=== PATIENT | female | born 1945 | race Caucasian/White ===

== ENCOUNTER 2019-02-02 07:09 | Day surgery (SDC) | payer MEDICARE, OTHER ==
[~2019-02-02] VITALS: Ht 147.3 cm; Wt 86.0 kg
[2019-02-02] VITALS (17 sets, daily range): BP systolic 105–145; BP diastolic 48–91; PULSE 60–73; RESP 12–25; Ht 147.3 cm; Wt 86.0 kg
[~2019-02-02 07:09] MED LIST: DIAZEPAM 5 MG TAB PO ONE; DIPHENHYDRAMINE 50 MG CAP PO ONE; FAMOTIDINE 20 MG TAB PO ONE; SOD CHLORIDE 0.45% 1,000 ML IV SCH
[2019-02-02] MEDS ORDERED: FAMOTIDINE 20 MG TAB PO SCH (08:30)
[2019-02-02] MEDS ORDERED: DIAZEPAM 5 MG TAB PO SCH (08:30)
[2019-02-02] MEDS ORDERED: DIPHENHYDRAMINE 50 MG CAP PO SCH (08:30)
[2019-02-02] MEDS ORDERED: LIDOCAINE 1% (MDV) 20 ML INJ ONE (08:31)
[2019-02-02] MEDS ORDERED: HEPARIN 1000 UNITS/ML 10 ML INJ ONE (08:31)
[2019-02-02] MEDS ORDERED: FENTAnyl 50 MCG/ML VIAL ONE (08:31)
[2019-02-02] MEDS ORDERED: MIDAZOLAM 1 MG/ML 2 ML INJ ONE (08:32)
[2019-02-02] MEDS ORDERED: NITROGLYCERIN (IC) 100 MCG/ML INJ ONE (08:32)
[2019-02-02] MEDS ORDERED: VERAPAMIL 5 MG INJ ONE (08:32)
[2019-02-02] MEDS ORDERED: OMEP20CA16 PO (08:38)
[2019-02-02] MEDS ORDERED: AMLO5TAB4 PO (08:39)
[2019-02-02] MEDS ORDERED: SOD CHLORIDE 0.9% 1,000 ML IV SCH (09:59)
[2019-02-02] MEDS ORDERED: ONDANSETRON 4 MG INJ IV PRN (10:00)
[2019-02-02] MEDS ORDERED: ACETAMINOPHEN 325 MG TAB PO PRN (10:00)
[2019-02-02] MEDS ORDERED: morphine 2 MG INJ IV PRN (10:00)
[2019-02-02] MEDS ORDERED: AL HYDROX/MG HYDROX/SIMETH 30 ML CUP PO PRN (10:00)
--- NOTE | 2019-02-02 10:07 | SIPON ---
Date/Time of Note Date/Time of Note DATE: 02/02/19 TIME: 10:04 Operative Report Preoperative Diagnosis 1.chest pain 2.abnl mpi Postoperative Diagnosis 1.non-obstructive cad Operation/Procedure Performed 1.[facility] Surgeon see signature line administrative assistant receptionist 1.Ronal Anesthesia: moderate sedation Estimated blood loss: minimal Transfusion Required none Specimen none Grafts/Implants none Complications none NUNU PEACE February 02, 2019 10:07
--- NOTE | 2019-02-02 15:31 | CARRPT ---
DATE OF PROCEDURE: 02/02/2019 TYPE OF PROCEDURES: 1. Left heart catheterization. 2. Coronary angiography. 3. Measurement of left ventricular end-diastolic pressure. 4. Moderate constipation. ATTENDING PHYSICIAN: Nunu Peraza MD REFERRING PHYSICIAN: Lovely Blanchard MD INDICATION: Chest pain refractory to medical therapy. TYPE OF ANESTHESIA: Conscious and local. BRIEF HISTORY: Ms. Mathew is a 73-year-old female with a history of hypertension and dyslipidemia who presented with complaints of substernal chest pain and cardiac stress test showing positive isch emia. Given these findings, the patient was referred for and presents today in order to undergo left heart catheterization to assess for possibility of significant obstructive coronary artery lending t o symptoms of chest pain and positive stress test findings. DESCRIPTION OF PROCEDURE: After informed consent was obtained, the patient was brought to the [facility] cardiac catheterization lab where her right radial area was prepped and draped in a sterile fashion. A 2% lidocaine was infiltrated into right radial area in order to achieve lukas quate anesthesia. Using the modified Seldinger technique, the radial artery was cannulated and a 6-F rench arterial sheath was placed. A 6-[place] JL3 catheter was used to cannulate the left main serrano ry artery ostium. With contrast injection, multiple views of the left coronary arterial system were obtained. JL3 was removed over a guidewire and JR4 was used to cannulate the right coronary arterial ostium. With contrast injection, multiple views of the right coronary system were obtained. JR4 wa s more guidewire and a 6-[place] pigtail was passed down the ascending aorta and placed in LV and ozzie ured LVEDP and pullback across the aortic valve to assess for significant gradient, which there was n ot. Subsequently, this completed the procedure. The patient's catheters were removed. The patient' s sheath was removed. TR band was applied. There were no noted complications. FINDINGS: Coronary angiography: Left main is 4 mm, no significant focal stenosis. Circumflex proxi carlos is a 3.5 mm vessel with an ostial 10% stenosis. Remainder of the circumflex is free of signifi cant focal stenoses. It is a dominant vessel and therefore gives off a left-sided PDA approximately 2 mm, no significant focal stenoses. Posterolateral branch is approximately 2 mm, no significant foc al stenosis. There is a distal branching obtuse marginal as well 2 mm with no significant focal sten oses. The LAD proximally is a 3.5 mm vessel, has an ostial 20% stenosis. Remainder of the LAD there after is free of significant focal stenoses, goes around the apex. There is a mid branching diagonal 2 mm with no significant focal stenoses. The right coronary artery proximally is a 2.5 mm vessel, i s a codominant vessel, gives off a very small PDA, sub 2 mm vessel with no significant focal stenoses and a 2 mm posterolateral branch with no significant focal stenosis. Measurement of left ventricular end diastolic pressure of 18 to 20. No significant aortic stenosis b y gradient. TOTAL FLUOROSCOPY TIME: 1.6 minutes. TOTAL CONTRAST: 50 mL. IMPRESSION: 1. Very mild nonobstructive coronary artery disease. 2. Mildly elevated left heart filling pressures. 3. No significant aortic stenosis by gradient. RECOMMENDATIONS: In light of procedure findings at this time, we would: 1. Maximize medical management. 2. Aggressive risk factor reduction. 3. The patient will be readmitted to same day surgery center for post-cath observation and continued management of symptoms with probable discharge later this afternoon. Dictated By: NUNU WARNER/CHELI Conf#: [id number] DID#: [id number] CC: LOVELY BLANCHARD MD;*EndCC*
--- NOTE | 2019-02-02 17:43 | RADRPT ---
Vent Rate: 69 bpm RR Interval: 864 msec MS Interval: 170 msec QRS Duration: 78 msec QT Interval: 410 msec QTC Interval: 441 msec P-R-T [place]: 30 - -8 - 17 degrees Sinus rhythm...normal P axis, V-rate 50- 99 Low voltage, precordial leads...precordial leads <1.0mV Electronically Signed By: Renato Spencer
== END 2019-02-02 14:30 | disposition home or self-care (01) ==
LOC: CCL 07:09
PROVIDERS: ATTEND Internal Medicine
DX: I25.10 Atherosclerotic heart disease of native coronary artery without angina pectoris (principal); I10 Essential (primary) hypertension; E78.5 Hyperlipidemia, unspecified
CPT/HCPCS: 71045; 80053; 80061; 85025; 85610; 85730; 93005; 93458; C1887; J1644; J2250; J3010